=== PATIENT | female | born 1985 | race Caucasian/White ===

== ENCOUNTER 2019-09-16 09:34 | Emergency (ER) | payer OTHER ==
[~2019-09-16] VITALS: Ht 154.9 cm; Wt 64.3 kg
[2019-09-16] MEDS ORDERED: NS 1,000 ML IV ONE (10:00)
[2019-09-16] MEDS ORDERED: ONDANSETRON 4MG/2ML VIAL (J2405) IV ONE (10:00)
[2019-09-16] MEDS ORDERED: KETOROLAC 30 MG/ML VIAL (J1885) IV ONE (10:00)
[2019-09-16 10:26] LABS: BASO % 0.9 % (0.0-1.0); EOS # 0.1 10^3/uL (0.0-0.5); EOS % 2.8 % (0.0-3.0); HEMATOCRIT 37.6 % (36.0-47.0); HEMOGLOBIN 11.6 g/dl (12.0-15.5); LYMPH # 1.6 10^3/uL (1.5-5.0); LYMPH % 33.4 % (24.0-44.0); MEAN CORPUSCULAR HEMOGLOBIN 27.7 pg (27.0-33.0); MEAN CORPUSCULAR HGB CONC 30.9 g/dl (32.0-36.5); MEAN CORPUSCULAR VOLUME 89.7 fl (80.0-96.0); MONO # 0.4 10^3/uL (0.0-0.8); MONO % 9.1 % (0.0-5.0); NEUTROPHILS # 2.5 10^3/uL (1.5-8.5); NEUTROPHILS % 53.6 % (36.0-66.0); PLATELET COUNT, AUTOMATED 223 10^3/uL (150-450); RED BLOOD COUNT 4.19 10^6/uL (4.00-5.40); WHITE BLOOD COUNT 4.6 10^3/uL (4.0-10.0)
[2019-09-16] MEDS ORDERED: VALA500T5 PO (10:29)
[2019-09-16] MEDS ORDERED: TOPI25TA10 PO (10:29)
[2019-09-16] MEDS ORDERED: ZOMI5TAB12 PO (10:29)
[2019-09-16] MEDS ORDERED: ZOLP5TAB PO (10:29)
[2019-09-16] MEDS ORDERED: WELLTAB38 PO (10:29)
[2019-09-16] MEDS ORDERED: FLUO20CA19 PO (10:29)
[2019-09-16] MEDS ORDERED: BUSP10TA PO (10:29)
[2019-09-16] MEDS ORDERED: ISOVUE-370 76% 100ML VIAL (Q9967) As Ordered ONE (10:40)
[2019-09-16 10:45] LABS: ALBUMIN 3.9 GM/DL (3.2-5.2); BILIRUBIN,DIRECT 0.1 MG/DL (0.0-0.2); BILIRUBIN,TOTAL 0.4 MG/DL (0.2-1.0); TOTAL PROTEIN 6.6 GM/DL (6.4-8.2)
--- NOTE | 2019-09-16 11:03 | REP ---
Clinical: Periumbilical pain. Technique: Axial contrast enhanced images from the lung bases to the pubic symphysis using 100 ml Isovue 370 intravenous contrast material with coronal and sagittal re-formations. Findings: Lung bases are clear. Visualized heart and pericardium normal. Liver, spleen, pancreas, bilateral adrenal glands and kidneys are normal. Evidence for prior cholecystectomy and gastric surgery. The enteric system demonstrates fecal stasis and possible constipation without obstruction or acute inflammatory process. Normal terminal ileum and appendix identified in the right lower quadrant. Few mildly prominent lymph nodes in the pericecal distribution suggest the possibility of mesenteric adenitis. Pelvis demonstrates normal bladder and evidence for prior hysterectomy. No ascites. No free air. No adenopathy. Abdominal aorta without aneurysm or dissection. Musculoskeletal structures are intact. Impression: 1. Fecal stasis and possible constipation. 2. Mildly prominent lymph nodes in the right lower quadrant raise the possibility of mesenteric adenitis. 3. No further acute abdominopelvic pathology appreciated. Electronically Signed by Gato Vegas MD 09/16/2019 10:54 A
[2019-09-16] MEDS ORDERED: METOCLOPRAMIDE INJ 10MG/2ML VIAL (J2765) As Ordered ONE (11:56)
[2019-09-16] MEDS ORDERED: METOCLOPRAMIDE INJ 10MG/2ML VIAL (J2765) IV ONE (12:00)
[2019-09-16] MEDS ORDERED: REGL10TA6 PO (12:15)
[2019-09-16 12:22] VITALS: BP 107/60
== END 2019-09-16 12:27 | disposition home or self-care (01) ==
LOC: M ED 09:34
DX: I88.9 Nonspecific lymphadenitis, unspecified (principal); K59.00 Constipation, unspecified; R11.0 Nausea; M54.5 Low back pain; F33.9 Major depressive disorder, recurrent, unspecified; F41.9 Anxiety disorder, unspecified; Z79.899 Other long term (current) drug therapy
CPT/HCPCS: 74177; 80047; 80076; 81001; 83690; 84702; 85025; 87880; 96361; 96374; 96375; 99284; J1885; J2405; J2765; Q9967

== ENCOUNTER → 2020-05-26 | Outpatient (REF) | payer OTHER ==
[~2020-05-26] MED LIST: BUSP10TA PO; CIPR500T3; FLUO20CA22 PO; PHEN-501; REGL10TA6 PO; TOPI25TA10 PO; VALA500T5 PO; WELLTAB38 PO; ZOLP5TAB PO; ZOMI5TAB12 PO
== END ==
LOC: M LAB REF 09:30
PROVIDERS: ATTEND Physician Assistant
DX: N39.0 Urinary tract infection, site not specified (principal)

== ENCOUNTER 2020-05-28 12:29 | Emergency (ER) | payer OTHER ==
[~2020-05-28] VITALS: Ht 154.9 cm; Wt 58.8 kg
[~2020-05-28 12:29] MED LIST changes: -CIPR500T3; -PHEN-501
[2020-05-28] MEDS ORDERED: CIPR500T3 (12:38)
[2020-05-28] MEDS ORDERED: PHEN-501 (12:38)
[2020-05-28] MEDS ORDERED: ACETAMINOPHEN 325 MG TAB PO ONE (13:15)
[2020-05-28 14:45] LABS: CHLAMYDIA DNA AMPLIFICATION NEGATIVE (NEGATIVE); GC DNA AMPLIFICATION NEGATIVE (NEGATIVE)
--- NOTE | 2020-05-28 14:46 | REPVR ---
PROCEDURE INFORMATION: Exam: US Pelvis Complete, Transabdominal and US Pelvis, Transvaginal Exam date and time: 05/28/2020 2:14 PM Age: 35 years old Clinical indication: Pelvic pain; Prior surgery; Surgery date: 6+ months TECHNIQUE: Imaging protocol: Real-time transabdominal and transvaginal pelvic ultrasound (complete) with image documentation. Transvaginal imaging was used for better evaluation of the endometrium and adnexa. COMPARISON: CT ABD/PEL W/IV CONTRAST ONLY 09/16/2019 10:41 AM FINDINGS: Uterus/cervix: Transabdominally, the uterus is not seen as a separate structure. Right adnexa: Endovaginally, the right ovary measures 2.4 x 2.3 by 2.2 cm. Arterial and venous blood flow demonstrated to the right ovary on color Doppler and pulse Doppler examination. 1.7 cm simple cyst noted in the right ovary. Left adnexa: The left ovary measures 2.9 x 1.5 by 2.9 centimetres. Arterial blood flow demonstrated to the left ovary on pulse Doppler examination. A somewhat tubular appearing simple cystic structure noted adjacent to the left ovary Intraperitoneal space: None. Bladder: Transabdominally, the bladder is poorly distended which limits visualization of the pelvic structures. IMPRESSION: 1. The uterus is absent consistent with the history of hysterectomy 2. Small tubular cystic appearing structure adjacent to the left ovary. This could represent an exophytic ovarian cyst, a very small hydrosalpinx or mesothelial cyst. No suspicious features. Electronically signed by: Belkys Alan On 05/28/2020 14:45:57 PM
[2020-05-28 14:53] LABS: BASO % 0.5 % (0.0-1.0); EOS # 0.1 10^3/uL (0.0-0.5); EOS % 1.1 % (0.0-3.0); HEMATOCRIT 36.4 % (36.0-47.0); HEMOGLOBIN 11.6 g/dl (12.0-15.5); LYMPH # 1.2 10^3/uL (1.5-5.0); LYMPH % 14.2 % (24.0-44.0); MEAN CORPUSCULAR HEMOGLOBIN 29.1 pg (27.0-33.0); MEAN CORPUSCULAR HGB CONC 31.9 g/dl (32.0-36.5); MEAN CORPUSCULAR VOLUME 91.5 fl (80.0-96.0); MONO # 0.6 10^3/uL (0.0-0.8); MONO % 7.3 % (0.0-5.0); NEUTROPHILS # 6.5 10^3/uL (1.5-8.5); NEUTROPHILS % 76.3 % (36.0-66.0); PLATELET COUNT, AUTOMATED 241 10^3/uL (150-450); RED BLOOD COUNT 3.98 10^6/uL (4.00-5.40); WHITE BLOOD COUNT 8.5 10^3/uL (4.0-10.0)
[2020-05-28 15:28] LABS: BLOOD UREA NITROGEN 7 MG/DL (7-18); CALCIUM LEVEL 8.9 MG/DL (8.5-10.1); CARBON DIOXIDE LEVEL 23 MEQ/L (21-32); CHLORIDE LEVEL 113 MEQ/L (98-107); CREATININE FOR GFR 0.86 MG/DL (0.55-1.30); GLOMERULAR FILTRATION RATE > 60.0 (>60); GLUCOSE, FASTING 86 MG/DL (70-100); SODIUM LEVEL 140 MEQ/L (136-145)
[2020-05-28 15:40] VITALS: BP 116/63
--- NOTE | 2020-05-30 12:55 | ED PDOC ---
Post-Departure Follow-Up pelvic us faxed to dr jacqueline escamilla for fu Erna Edward MD May 30, 2020 12:55
== END 2020-05-28 15:41 | disposition home or self-care (01) ==
LOC: M ED 12:29
DX: R10.2 Pelvic and perineal pain (principal); N83.202 Unspecified ovarian cyst, left side; A60.00 Herpesviral infection of urogenital system, unspecified; F41.9 Anxiety disorder, unspecified; F33.9 Major depressive disorder, recurrent, unspecified; Z79.899 Other long term (current) drug therapy

== ENCOUNTER → 2020-06-28 | Outpatient (CLI) | payer OTHER ==
[~2020-06-28] MED LIST changes: +CIPR500T3; +PHEN-501
--- NOTE | 2020-06-30 16:10 | REP ---
PELVIC ULTRASOUND: 06/28/20. CLINICAL: Follow-up ovarian cyst. COMPARISON: 05/28/20. TECHNIQUE: Transabdominal pelvic ultrasound followed by transvaginal examination for better evaluation of the adnexa. FINDINGS: The patient is noted to be status post hysterectomy. The bladder is collapsed. No pelvic free fluid or obvious mass lesion is appreciated. The bilateral ovaries are normal in appearance and vascularity demonstrating multiple follicles. The right ovary measures 2.4 x 1.6 x 1.7cm (RI 0.46) without significant ovarian cyst or mass. The left ovary measures 3.6 x 1.7 x 2.7cm (RI 0.51) without significant ovarian cyst or mass. Adjacent to the bilateral ovaries are tubular structures similar to prior examination which may represent mild bilateral hydrosalpinx as well as adjacent loops of small bowel. IMPRESSION: 1. Evidence for prior hysterectomy. Normal appearance to the bilateral ovaries without significant cyst or mass. 2. Tubular structures in the bilateral adnexa may represent mild hydrosalpinx and/or adjacent loops of small bowel. This is essentially unchanged from prior examination and should be correlated with physical examination. MTDD
== END ==
LOC: M WHC 08:02
PROVIDERS: ATTEND Specialist
DX: Z90.79 Acquired absence of other genital organ(s) (principal); Z87.42 Personal history of other diseases of the female genital tract

== ENCOUNTER → 2021-04-03 | Outpatient (REF) | payer OTHER | LOC: M LAB REF 16:43 | PROVIDERS: ATTEND Family Medicine | DX: N39.0 Urinary tract infection, site not specified (principal) ==

== ENCOUNTER → 2021-04-04 | Outpatient (CLI) | payer OTHER ==
--- NOTE | 2021-04-04 15:29 | REP ---
INDICATION: RENAL COLIC. COMPARISON: CT 09/16/2019 TECHNIQUE: Noncontrast CT with coronal and sagittal reconstructions. FINDINGS: CT abdomen: The lung bases are clear. Incidental note made of the breast implants. The heart is not enlarged. There is no pericardial thickening or effusion. Gastric staple line and surgical clips from prior cholecystectomy are noted. The liver and spleen are not enlarged. I see no focal lesion. Adrenal glands are normal. Kidneys are without stone or hydronephrosis. No renal cyst or mass. No gross hydroureter or ureteral stone. Bladder is empty, no visible stone or mass. There is a moderate retained stool throughout, representing a degree of constipation. This is more than on the previous study. Small bowel loops are not dilated. The aorta is without aneurysm. There is no periaortic or other retroperitoneal pathologic sized lymphadenopathy. There is no ascites or free air in the abdomen or pelvis. There are 2 surgical clips abutting the superficial fascia of the abdominal wall close to the umbilicus, just above the right rectus muscle. These are unchanged. Bone windows show lumbar and lower thoracic spine, the posterior elements and visualized ribs grossly intact. CT pelvis: Sacrum, SI joints, pelvis and hips are without evidence of any acute bony abnormality. No distal ureteral or bladder stone. Uterus is absent. Left adnexa is enlarged measuring 6 x 4.4 x 4.2 cm. No abnormal calcifications. It is CT attenuation value of 8.8 indicating fluid. No pelvic free fluid, the right adnexa grossly unremarkable. Small bowel loops abdomen and pelvis were unremarkable. No inflammatory changes adjacent to the cecum. I cannot confidently identify an appendix. The distal left colon, rectum and sigmoid demonstrate some stool and gas. No ventral or inguinal hernia nor pathologic inguinal adenopathy. IMPRESSION: 1. No evidence of a pleural effusion, acute infiltrate, parenchymal nodule or mass. Lungs bases clear. 2. No renal, ureteral or bladder stone. I see no hydronephrosis or hydroureter. 3. Enlarged left ovary greatest diameter 6 cm it appears to be a large cyst with low attenuation. 4. I do not see pathologic sized adenopathy in the abdomen or pelvis. 5. Constipation but no sign of the small bowel dilatation to suggest obstruction ileus. 6. Solid organs in the upper abdomen were unremarkable. There is been prior cholecystectomy and gastric bypass surgery. <Electronically signed by Ramiro Mendez > 04/04/21 [id number]
== END ==
LOC: M RAD 14:43
PROVIDERS: ATTEND Family Medicine
DX: N23 Unspecified renal colic (principal)

== ENCOUNTER → 2021-04-27 | Outpatient (CLI) | payer OTHER ==
--- NOTE | 2021-04-27 15:18 | REP ---
INDICATION: GENERALIZED ABDOMINAL PAIN. COMPARISON: Abdomen/pelvis CT dated 04/04/2021. TECHNIQUE: Upright PA view of the chest and supine and upright views of the abdomen. FINDINGS: PA chest: The lung nieto are clear. Cardiac size is normal. The marichuy, mediastinum, and skeletal structures are unremarkable. The There is no free subdiaphragmatic air. There is mild thoracic scoliosis convex right, possibly positional. At supine and upright abdomen: There is no bowel distention, there are a few air-fluid levels in nondistended bowel loops. This is nonspecific and may represent ileus. There are surgical clips and alisha in the abdomen. IMPRESSION: Essentially negative upright PA chest. Nonspecific bowel gas pattern. <Electronically signed by Tray Coyne > 04/27/21 [id number]
== END ==
LOC: M RAD 14:43
PROVIDERS: ATTEND Physician Assistant
DX: R10.84 Generalized abdominal pain (principal)

== ENCOUNTER → 2021-04-27 | Outpatient (REF) | payer OTHER | LOC: M LAB REF 17:06 | PROVIDERS: ATTEND Physician Assistant | DX: N39.0 Urinary tract infection, site not specified (principal) ==

== ENCOUNTER → 2021-04-27 | Outpatient (CLI) | payer OTHER ==
[2021-04-27 15:50] LABS: BASO # 0.1 10^3/uL (0.0-0.2); BASO % 1.3 % (0.0-1.0); EOS # 0.2 10^3/uL (0.0-0.5); EOS % 2.6 % (0.0-3.0); HEMATOCRIT 38.2 % (36.0-47.0); HEMOGLOBIN 12.1 g/dl (12.0-15.5); LYMPH # 2.4 10^3/uL (1.5-5.0); LYMPH % 34.1 % (24.0-44.0); MEAN CORPUSCULAR HEMOGLOBIN 30.1 pg (27.0-33.0); MEAN CORPUSCULAR HGB CONC 31.7 g/dl (32.0-36.5); MONO # 0.6 10^3/uL (0.0-0.8); MONO % 8.5 % (2.0-8.0); NEUTROPHILS # 3.7 10^3/uL (1.5-8.5); NEUTROPHILS % 53.2 % (36.0-66.0); PLATELET COUNT, AUTOMATED 224 10^3/uL (150-450); RED BLOOD COUNT 4.02 10^6/uL (4.00-5.40)
[2021-04-27 16:23] LABS: FREE T4 0.79 NG/DL (0.76-1.46); THYROID STIMULATING HORMONE 1.92 uIU/ML (0.358-3.740)
[2021-04-27 16:31] LABS: ESTRADIOL 145.5 PG/ML; PROGESTERONE 0.21 NG/ML
== END ==
LOC: M LAB 14:41
PROVIDERS: ATTEND Family Medicine
DX: Z90.710 Acquired absence of both cervix and uterus (principal); R10.84 Generalized abdominal pain; N39.0 Urinary tract infection, site not specified

== ENCOUNTER → 2021-05-12 | Outpatient (CLI) | payer OTHER ==
--- NOTE | 2021-05-12 14:29 | REP ---
INDICATION: LT OVARION CYST COMPARISON: CT dated 04/04/2021; ultrasound dated 06/28/2020 TECHNIQUE: Transabdominal pelvic ultrasound followed by transvaginal examination for better evaluation of the endometrium and adnexa with color Doppler evaluation of the ovaries. FINDINGS: Bladder is unremarkable and measures 6.0 x 5.4 x 4.0 cm. Evidence for prior hysterectomy. Right ovary not visualized. Left ovary measures 3.5 x 1.1 x 2.8 cm (RI 0.50) and appears normal. Anechoic tubular structures next to the left ovary likely represent element of hydrosalpinx. IMPRESSION: 1. Left ovarian cyst identified on recent CT has resolved. 2. Left-sided hydrosalpinx again suspected and similar to findings on prior pelvic ultrasound dated 06/28/2020. <Electronically signed by Gato Vegas > 05/12/21 [id number]
== END ==
LOC: M RAD 12:33
PROVIDERS: ATTEND Family Medicine
DX: N83.202 Unspecified ovarian cyst, left side (principal)

== ENCOUNTER → 2021-05-18 | Outpatient (REF) | payer OTHER | LOC: M LAB REF 17:07 | PROVIDERS: ATTEND Family Medicine | DX: N89.8 Other specified noninflammatory disorders of vagina (principal) ==

== ENCOUNTER 2021-10-27 09:22 | Day surgery (SDC) | payer OTHER ==
[~2021-10-27] VITALS: Ht 154.9 cm; Wt 53.4 kg
[~2021-10-27 09:22] MED LIST changes: +BUSP5TA PO; +FLUO40CA PO; +NS 1,000 ML IV ONE; +SUMA25TA3 PO; +WELLTAB40 PO
[2021-10-27] MEDS ORDERED: LIDOCAINE 2% 100MG/5ML SDV (FOR ANES.) As Ordered ONE (09:24)
[2021-10-27] MEDS ORDERED: propofoL 500 MG/50 ML VIAL As Ordered ONE (09:24)
[2021-10-27 10:56] VITALS: BP 106/50
== END 2021-10-27 11:10 | disposition home or self-care (01) ==
LOC: M OPP 09:22
PROVIDERS: ATTEND Internal Medicine Gastroenterology
DX: K58.1 Irritable bowel syndrome with constipation (principal); K64.8 Other hemorrhoids; Q43.8 Other specified congenital malformations of intestine; Z79.899 Other long term (current) drug therapy; Z98.0 Intestinal bypass and anastomosis status; Z80.42 Family history of malignant neoplasm of prostate